=== PATIENT | male | born 1965 | race African-American/Black ===

== ENCOUNTER 2021-06-16 13:29 | Inpatient (IN) | payer MEDICARE, OTHER ==
[~2021-06-16] VITALS: Ht 182.9 cm; Wt 74.0 kg
[2021-06-16 16:48] VITALS: BP 120/61
[2021-06-16] MEDS ORDERED: MELATONIN 3 MG TABLET PO PRN (17:00)
[2021-06-16] MEDS ORDERED: DEXTROSE 50%-WATER 25 GM/50 ML SYRINGE IVP PRN (17:00)
[2021-06-16] MEDS ORDERED: HydrALAZINE HCL 50 MG TABLET PO PRN (17:45)
[2021-06-16] MEDS: INSULIN LISPRO 100 UNITS/ML SQ PRN ×2 (17:58→21:17)
[2021-06-16] MEDS: SEVELAMER CARBONATE 800 MG TABLET PO SCH (18:04)
[2021-06-16] MEDS: ACETAMINOPHEN 325 MG TABLET PO PRN (18:28)
[2021-06-16 19:46] LABS: GLUCOMETER DEV NAME(LOC) 2WR.2B; GLUCOSE,POINT OF CARE 151 MG/DL (70-110)
[2021-06-16] MEDS: ATORVASTATIN CALCIUM 40 MG TABLET PO SCH (21:04)
[2021-06-16] MEDS: SENNA 187 MG TABLET PO SCH (21:04)
[2021-06-16] MEDS: ETHYL ALCOHOL 62% ANTISEPTIC NASAL SANITIZER 0.6 ML AMPUL NASAL SCH (21:04)
[2021-06-16] MEDS: DOCUSATE SODIUM 100 MG CAPSULE PO SCH (21:05)
[2021-06-16] MEDS: HYDROmorphone HCL 2 MG TABLET PO SCH (21:05)
[2021-06-16 21:31] LABS: GLUCOMETER DEV NAME(LOC) 2WR.1C; GLUCOSE,POINT OF CARE 147 MG/DL (70-110)
[2021-06-17] VITALS (13 sets, daily range): BP systolic 117–140; BP diastolic 62–86
[2021-06-17 06:36] LABS: GLUCOMETER DEV NAME(LOC) 2WR.1C; GLUCOSE,POINT OF CARE 116 MG/DL (70-110)
[2021-06-17] MEDS: ETHYL ALCOHOL 62% ANTISEPTIC NASAL SANITIZER 0.6 ML AMPUL NASAL SCH ×2 (07:56→20:48)
[2021-06-17] MEDS: HYDROmorphone HCL 2 MG TABLET PO SCH (07:56)
[2021-06-17] MEDS: ASPIRIN 81 MG CHEWABLE TABLET PO SCH (07:56)
[2021-06-17] MEDS: SEVELAMER CARBONATE 800 MG TABLET PO SCH ×3 (07:56→17:29)
[2021-06-17] MEDS: CLOPIDOGREL BISULFATE 75 MG TABLET PO SCH (07:57)
[2021-06-17] MEDS: LISINOPRIL 20 MG TABLET PO SCH (07:57)
[2021-06-17] MEDS: AmLODIPine BESYLATE 10 MG TABLET PO SCH (07:57)
[2021-06-17] MEDS: VITAMIN B COMPLEX/FOLIC ACID 1 TABLET PO SCH (07:57)
[2021-06-17] MEDS: DOCUSATE SODIUM 100 MG CAPSULE PO SCH ×2 (08:02→20:47)
[2021-06-17] MEDS ORDERED: SODIUM CHLORIDE 0.9% 1,000 ML ONE ×2 (10:21→10:22)
[2021-06-17 10:27] LABS: BASOPHILS % (AUTO) 0.7 % (0.0-2.0); HEMATOCRIT 27.2 % (41-53); HEMOGLOBIN 8.7 g/dL (13.5-17.5); LYMPHOCYTES # (AUTO) 0.9 K/uL (1.0-4.8); LYMPHOCYTES % (AUTO) 6.6 % (22.0-44.0); MEAN CORPUSCULAR HEMOGLOBIN 29.6 pg (26.0-34.0); MEAN CORPUSCULAR VOLUME 92 fL (80-100); MONOCYTES # (AUTO) 1.3 K/uL (0.1-1.0); NEUTROPHILS # (AUTO) 11.7 K/uL (1.8-7.7); NEUTROPHILS % (AUTO) 82.7 % (40.0-70.0); PLATELET COUNT (AUTO) 258 K/uL (150-450); RED BLOOD CELL COUNT(AUTO) 2.94 MIL/uL (4.50-5.90); RED CELL DISTRIBUTION WIDTH 16.8 % (11.5-14.5)
[2021-06-17 10:34] LABS: ALBUMIN 2.2 g/dL (3.4-5.0); BILIRUBIN,TOTAL 0.3 mg/dL (0.1-1.0); CALCIUM, TOTAL 10.3 mg/dL (8.8-10.5); CREATININE 9.76 mg/dL (0.60-1.30); MAGNESIUM 2.5 mg/dL (1.80-2.40); PHOSPHORUS 5.6 mg/dL (2.5-4.9); POTASSIUM 4.6 mmol/L (3.5-5.1); TOTAL PROTEIN, SERUM 7.2 g/dL (6.4-8.2)
[2021-06-17] MEDS ORDERED: HYDROmorphone HCL 2 MG TABLET PO PRN (12:45)
[2021-06-17 16:16] LABS: GLUCOMETER DEV NAME(LOC) 2WR.2B; GLUCOSE,POINT OF CARE 84 MG/DL (70-110)
[2021-06-17] MEDS ORDERED: METO50 PO (17:07)
[2021-06-17] MEDS ORDERED: INSU100I26 SQ (17:07)
[2021-06-17] MEDS ORDERED: LISI-894 PO (17:07)
[2021-06-17] MEDS ORDERED: CLOP75TA60 PO (17:07)
[2021-06-17] MEDS ORDERED: ATOR40TA28 PO (17:07)
[2021-06-17] MEDS ORDERED: HYDR10TA31 PO (17:07)
[2021-06-17] MEDS ORDERED: FERR210T PO (17:10)
[2021-06-17 18:11] LABS: GLUCOMETER DEV NAME(LOC) 2WR.2B; GLUCOSE,POINT OF CARE 121 MG/DL (70-110)
[2021-06-17] MEDS: SENNA 187 MG TABLET PO SCH (20:47)
[2021-06-17] MEDS: ATORVASTATIN CALCIUM 40 MG TABLET PO SCH (20:47)
[2021-06-17 21:25] LABS: GLUCOMETER DEV NAME(LOC) 2WR.1C; GLUCOSE,POINT OF CARE 135 MG/DL (70-110)
[2021-06-18] VITALS: BP 130/74
[2021-06-18] MEDS: FAMOTIDINE 20 MG TABLET PO SCH (05:55)
[2021-06-18 06:16] LABS: GLUCOMETER DEV NAME(LOC) 2WR.1C; GLUCOSE,POINT OF CARE 98 MG/DL (70-110)
[2021-06-18] MEDS: ASPIRIN 81 MG CHEWABLE TABLET PO SCH (08:28)
[2021-06-18] MEDS: SEVELAMER CARBONATE 800 MG TABLET PO SCH ×3 (08:28→17:15)
[2021-06-18] MEDS: AmLODIPine BESYLATE 10 MG TABLET PO SCH (08:29)
[2021-06-18] MEDS: CLOPIDOGREL BISULFATE 75 MG TABLET PO SCH (08:29)
[2021-06-18] MEDS: VITAMIN B COMPLEX/FOLIC ACID 1 TABLET PO SCH (08:29)
[2021-06-18] MEDS: LISINOPRIL 20 MG TABLET PO SCH (08:29)
[2021-06-18] MEDS: DOCUSATE SODIUM 100 MG CAPSULE PO SCH ×2 (08:30→21:12)
[2021-06-18] MEDS: ETHYL ALCOHOL 62% ANTISEPTIC NASAL SANITIZER 0.6 ML AMPUL NASAL SCH ×2 (08:30→21:11)
[2021-06-18] MEDS: EPOETIN ALFA 10,000 UNITS/ML VIAL SQ SCH (09:27)
[2021-06-18 09:30] VITALS: BP 137/74
[2021-06-18 12:46] LABS: GLUCOMETER DEV NAME(LOC) 2WR.2B; GLUCOSE,POINT OF CARE 139 MG/DL (70-110)
[2021-06-18 16:35] VITALS: BP 124/72
[2021-06-18] MEDS: INSULIN LISPRO 100 UNITS/ML SQ PRN (17:28)
[2021-06-18] MEDS: ATORVASTATIN CALCIUM 40 MG TABLET PO SCH (21:12)
[2021-06-18] MEDS: SENNA 187 MG TABLET PO SCH (21:12)
[2021-06-18 22:36] LABS: GLUCOMETER DEV NAME(LOC) 2WR.2B; GLUCOSE,POINT OF CARE 133 MG/DL (70-110)
[2021-06-19] VITALS (12 sets, daily range): BP systolic 90–144; BP diastolic 55–129
[2021-06-19] MEDS: FAMOTIDINE 20 MG TABLET PO SCH (05:27)
[2021-06-19 05:31] LABS: GLUCOMETER DEV NAME(LOC) 2WR.1C; GLUCOSE,POINT OF CARE 149 MG/DL (70-110)
[2021-06-19 06:40] LABS: GLUCOMETER DEV NAME(LOC) 2WR.2B; GLUCOSE,POINT OF CARE 109 MG/DL (70-110)
[2021-06-19] MEDS: ETHYL ALCOHOL 62% ANTISEPTIC NASAL SANITIZER 0.6 ML AMPUL NASAL SCH ×2 (08:17→21:35)
[2021-06-19] MEDS: VITAMIN B COMPLEX/FOLIC ACID 1 TABLET PO SCH (08:17)
[2021-06-19] MEDS: SEVELAMER CARBONATE 800 MG TABLET PO SCH ×3 (08:17→17:00)
[2021-06-19] MEDS: CLOPIDOGREL BISULFATE 75 MG TABLET PO SCH (08:17)
[2021-06-19] MEDS: ASPIRIN 81 MG CHEWABLE TABLET PO SCH (08:17)
[2021-06-19] MEDS: AmLODIPine BESYLATE 10 MG TABLET PO SCH (08:42)
[2021-06-19] MEDS: DOCUSATE SODIUM 100 MG CAPSULE PO SCH ×2 (08:42→21:35)
[2021-06-19] MEDS: LISINOPRIL 20 MG TABLET PO SCH (08:43)
[2021-06-19] MEDS: ACETAMINOPHEN 325 MG TABLET PO PRN (09:17)
[2021-06-19] MEDS ORDERED: SODIUM CHLORIDE 0.9% 2,000 ML ONE (12:29)
[2021-06-19] MEDS: INSULIN LISPRO 100 UNITS/ML SQ PRN (12:34)
[2021-06-19 12:36] LABS: GLUCOMETER DEV NAME(LOC) 2WR.1C; GLUCOSE,POINT OF CARE 196 MG/DL (70-110)
[2021-06-19 14:02] LABS: BASOPHILS % (AUTO) 0.8 % (0.0-2.0); HEMATOCRIT 26.7 % (41-53); HEMOGLOBIN 8.6 g/dL (13.5-17.5); MEAN CORPUSCULAR HEMOGLOBIN 29.6 pg (26.0-34.0); MEAN CORPUSCULAR HGB CONC 32.4 G/dL (31.0-37.0); MEAN CORPUSCULAR VOLUME 92 fL (80-100); MONOCYTES # (AUTO) 1.1 K/uL (0.1-1.0); MONOCYTES % (AUTO) 9.7 % (2.0-9.0); NEUTROPHILS # (AUTO) 9.2 K/uL (1.8-7.7); NEUTROPHILS % (AUTO) 79.5 % (40.0-70.0); PLATELET COUNT (AUTO) 268 K/uL (150-450); RED BLOOD CELL COUNT(AUTO) 2.92 MIL/uL (4.50-5.90); RED CELL DISTRIBUTION WIDTH 16.5 % (11.5-14.5)
[2021-06-19] MEDS ORDERED: METO-558 PO (19:19)
[2021-06-19] MEDS ORDERED: LOPE2 PO (19:19)
[2021-06-19] MEDS ORDERED: AMLO10TA55 PO (19:19)
[2021-06-19] MEDS: HYDROCODONE/ACETAMINOPHEN 5-325 MG TABLET PO PRN (21:34)
[2021-06-19] MEDS: ATORVASTATIN CALCIUM 40 MG TABLET PO SCH (21:35)
[2021-06-19] MEDS: SENNA 187 MG TABLET PO SCH (21:35)
[2021-06-19] MEDS: GABAPENTIN 100 MG CAPSULE PO SCH (21:37)
[2021-06-19 22:07] LABS: GLUCOMETER DEV NAME(LOC) 2WR.2B; GLUCOSE,POINT OF CARE 99 MG/DL (70-110)
[2021-06-20] VITALS (7 sets, daily range): BP systolic 83–123; BP diastolic 41–63
[2021-06-20] MEDS: FAMOTIDINE 20 MG TABLET PO SCH (06:11)
[2021-06-20 06:31] LABS: GLUCOMETER DEV NAME(LOC) 2WR.2B; GLUCOSE,POINT OF CARE 110 MG/DL (70-110)
[2021-06-20] MEDS: EPOETIN ALFA 10,000 UNITS/ML VIAL SQ SCH (08:40)
[2021-06-20] MEDS: ETHYL ALCOHOL 62% ANTISEPTIC NASAL SANITIZER 0.6 ML AMPUL NASAL SCH ×2 (08:40→20:50)
[2021-06-20] MEDS: CLOPIDOGREL BISULFATE 75 MG TABLET PO SCH (08:41)
[2021-06-20] MEDS: GABAPENTIN 100 MG CAPSULE PO SCH ×2 (08:41→20:51)
[2021-06-20] MEDS: AmLODIPine BESYLATE 10 MG TABLET PO SCH (08:41)
[2021-06-20] MEDS: LISINOPRIL 20 MG TABLET PO SCH (08:41)
[2021-06-20] MEDS: SEVELAMER CARBONATE 800 MG TABLET PO SCH ×3 (08:41→17:24)
[2021-06-20] MEDS: DOCUSATE SODIUM 100 MG CAPSULE PO SCH ×2 (08:51→20:50)
[2021-06-20] MEDS: ASPIRIN 81 MG CHEWABLE TABLET PO SCH (08:53)
[2021-06-20] MEDS: VITAMIN B COMPLEX/FOLIC ACID 1 TABLET PO SCH (08:54)
[2021-06-20 12:26] LABS: GLUCOMETER DEV NAME(LOC) 2WR.1C; GLUCOSE,POINT OF CARE 157 MG/DL (70-110)
[2021-06-20] MEDS: INSULIN LISPRO 100 UNITS/ML SQ PRN ×2 (12:30→20:53)
[2021-06-20] MEDS: HYDROCODONE/ACETAMINOPHEN 5-325 MG TABLET PO PRN (14:06)
[2021-06-20 19:40] LABS: GLUCOMETER DEV NAME(LOC) 2WR.1C; GLUCOSE,POINT OF CARE 131 MG/DL (70-110)
[2021-06-20] MEDS: SENNA 187 MG TABLET PO SCH (20:51)
[2021-06-20] MEDS: ATORVASTATIN CALCIUM 40 MG TABLET PO SCH (20:52)
[2021-06-20 22:31] LABS: GLUCOMETER DEV NAME(LOC) 2WR.2B; GLUCOSE,POINT OF CARE 161 MG/DL (70-110)
[2021-06-21] VITALS (14 sets, daily range): BP systolic 91–110; BP diastolic 49–62
[2021-06-21] MEDS: FAMOTIDINE 20 MG TABLET PO SCH (05:45)
[2021-06-21 06:11] LABS: GLUCOMETER DEV NAME(LOC) 2WR.2B; GLUCOSE,POINT OF CARE 135 MG/DL (70-110)
[2021-06-21] MEDS: ETHYL ALCOHOL 62% ANTISEPTIC NASAL SANITIZER 0.6 ML AMPUL NASAL SCH ×2 (08:04→22:10)
[2021-06-21] MEDS: ASPIRIN 81 MG CHEWABLE TABLET PO SCH (08:05)
[2021-06-21] MEDS: CLOPIDOGREL BISULFATE 75 MG TABLET PO SCH (08:05)
[2021-06-21] MEDS: DOCUSATE SODIUM 100 MG CAPSULE PO SCH ×2 (08:05→22:10)
[2021-06-21] MEDS: VITAMIN B COMPLEX/FOLIC ACID 1 TABLET PO SCH (08:05)
[2021-06-21] MEDS: SEVELAMER CARBONATE 800 MG TABLET PO SCH ×2 (08:05→12:14)
[2021-06-21] MEDS: GABAPENTIN 100 MG CAPSULE PO SCH ×2 (08:06→22:10)
[2021-06-21] MEDS: AmLODIPine BESYLATE 10 MG TABLET PO SCH (08:06)
[2021-06-21] MEDS: LISINOPRIL 20 MG TABLET PO SCH (08:06)
[2021-06-21 09:11] LABS: BASOPHILS % (AUTO) 1.1 % (0.0-2.0); HEMATOCRIT 29.9 % (41-53); HEMOGLOBIN 9.6 g/dL (13.5-17.5); LYMPHOCYTES # (AUTO) 1.9 K/uL (1.0-4.8); LYMPHOCYTES % (AUTO) 18.1 % (22.0-44.0); MEAN CORPUSCULAR HEMOGLOBIN 29.8 pg (26.0-34.0); MEAN CORPUSCULAR VOLUME 93 fL (80-100); MONOCYTES # (AUTO) 1.2 K/uL (0.1-1.0); NEUTROPHILS # (AUTO) 7.2 K/uL (1.8-7.7); NEUTROPHILS % (AUTO) 67.8 % (40.0-70.0); PLATELET COUNT (AUTO) 296 K/uL (150-450); RED BLOOD CELL COUNT(AUTO) 3.21 MIL/uL (4.50-5.90); RED CELL DISTRIBUTION WIDTH 16.6 % (11.5-14.5)
[2021-06-21 09:23] LABS: CALCIUM, TOTAL 10.7 mg/dL (8.8-10.5); CREATININE 9.79 mg/dL (0.60-1.30); MAGNESIUM 2.6 mg/dL (1.80-2.40); PHOSPHORUS 5.4 mg/dL (2.5-4.9); POTASSIUM 4.2 mmol/L (3.5-5.1)
[2021-06-21] MEDS: HYDROCODONE/ACETAMINOPHEN 5-325 MG TABLET PO PRN (10:41)
[2021-06-21] MEDS: INSULIN LISPRO 100 UNITS/ML SQ PRN ×3 (12:15→22:16)
[2021-06-21] MEDS: ACETAMINOPHEN 325 MG TABLET PO PRN (13:28)
[2021-06-21 14:06] LABS: GLUCOMETER DEV NAME(LOC) 2WR.2B; GLUCOSE,POINT OF CARE 167 MG/DL (70-110)
[2021-06-21] MEDS ORDERED: SODIUM CHLORIDE 0.9% 1,000 ML ONE ×2 (14:36→14:37)
[2021-06-21] MEDS ORDERED: *PATIENT'S OWN MED [ENTER DRUG, DOSE, FREQUENCY IN COMMENTS] CLINICAL ONE (17:30)
[2021-06-21] MEDS: FERRIC CITRATE 1 GM PO SCH (18:56)
[2021-06-21 19:06] LABS: GLUCOMETER DEV NAME(LOC) 2WR.2B; GLUCOSE,POINT OF CARE 147 MG/DL (70-110)
[2021-06-21] MEDS: ATORVASTATIN CALCIUM 40 MG TABLET PO SCH (22:10)
[2021-06-21] MEDS: SENNA 187 MG TABLET PO SCH (22:10)
[2021-06-21 22:52] LABS: GLUCOMETER DEV NAME(LOC) 2WR.2B; GLUCOSE,POINT OF CARE 170 MG/DL (70-110)
[2021-06-22] VITALS (9 sets, daily range): BP systolic 85–115; BP diastolic 50–68
[2021-06-22] MEDS: FAMOTIDINE 20 MG TABLET PO SCH (05:55)
[2021-06-22 06:36] LABS: GLUCOMETER DEV NAME(LOC) 2WR.1C; GLUCOSE,POINT OF CARE 117 MG/DL (70-110)
[2021-06-22] MEDS: FERRIC CITRATE 1 GM PO SCH ×3 (07:47→16:57)
[2021-06-22] MEDS: ETHYL ALCOHOL 62% ANTISEPTIC NASAL SANITIZER 0.6 ML AMPUL NASAL SCH ×2 (07:47→22:03)
[2021-06-22] MEDS: DOCUSATE SODIUM 100 MG CAPSULE PO SCH ×2 (07:48→22:04)
[2021-06-22] MEDS: GABAPENTIN 100 MG CAPSULE PO SCH ×2 (07:48→22:04)
[2021-06-22] MEDS: VITAMIN B COMPLEX/FOLIC ACID 1 TABLET PO SCH (07:48)
[2021-06-22] MEDS: ASPIRIN 81 MG CHEWABLE TABLET PO SCH (07:48)
[2021-06-22] MEDS: CLOPIDOGREL BISULFATE 75 MG TABLET PO SCH (07:49)
[2021-06-22] MEDS: EPOETIN ALFA 10,000 UNITS/ML VIAL SQ SCH (07:52)
[2021-06-22] MEDS: AmLODIPine BESYLATE 10 MG TABLET PO SCH (10:05)
[2021-06-22] MEDS: LISINOPRIL 20 MG TABLET PO SCH (10:05)
[2021-06-22] MEDS: ONDANSETRON HCL 4 MG TABLET PO PRN (11:41)
[2021-06-22 12:21] LABS: GLUCOMETER DEV NAME(LOC) 2WR.2B; GLUCOSE,POINT OF CARE 147 MG/DL (70-110)
[2021-06-22] MEDS: INSULIN LISPRO 100 UNITS/ML SQ PRN ×2 (12:38→22:09)
[2021-06-22 17:37] LABS: GLUCOMETER DEV NAME(LOC) 2WR.1C; GLUCOSE,POINT OF CARE 97 MG/DL (70-110)
[2021-06-22] MEDS: ATORVASTATIN CALCIUM 40 MG TABLET PO SCH (22:04)
[2021-06-22] MEDS: SENNA 187 MG TABLET PO SCH (22:04)
[2021-06-22 23:51] LABS: GLUCOMETER DEV NAME(LOC) 2WR.2B; GLUCOSE,POINT OF CARE 162 MG/DL (70-110)
[2021-06-23] VITALS (13 sets, daily range): BP systolic 92–120; BP diastolic 49–85
[2021-06-23] MEDS: FAMOTIDINE 20 MG TABLET PO SCH (05:53)
[2021-06-23 06:01] LABS: GLUCOMETER DEV NAME(LOC) 2WR.2B; GLUCOSE,POINT OF CARE 115 MG/DL (70-110)
[2021-06-23 06:41] LABS: BASOPHILS % (AUTO) 0.2 % (0.0-2.0); EOSINOPHILS % (AUTO) 1.4 % (1.0-6.0); HEMATOCRIT 29.6 % (41-53); HEMOGLOBIN 9.3 g/dL (13.5-17.5); LYMPHOCYTES # (AUTO) 1.7 K/uL (1.0-4.8); MEAN CORPUSCULAR HEMOGLOBIN 29.2 pg (26.0-34.0); MEAN CORPUSCULAR HGB CONC 31.5 G/dL (31.0-37.0); MEAN CORPUSCULAR VOLUME 93 fL (80-100); MONOCYTES # (AUTO) 1.2 K/uL (0.1-1.0); MONOCYTES % (AUTO) 9.1 % (2.0-9.0); NEUTROPHILS # (AUTO) 10.2 K/uL (1.8-7.7); NEUTROPHILS % (AUTO) 76.3 % (40.0-70.0); PLATELET COUNT (AUTO) 303 K/uL (150-450); RED CELL DISTRIBUTION WIDTH 16.5 % (11.5-14.5)
[2021-06-23 06:56] LABS: CALCIUM, TOTAL 10.9 mg/dL (8.8-10.5); CREATININE 9.6 mg/dL (0.60-1.30); MAGNESIUM 2.3 mg/dL (1.80-2.40); PHOSPHORUS 5.2 mg/dL (2.5-4.9); POTASSIUM 5.4 mmol/L (3.5-5.1)
[2021-06-23] MEDS: FERRIC CITRATE 1 GM PO SCH ×3 (08:20→17:46)
[2021-06-23] MEDS: LISINOPRIL 20 MG TABLET PO SCH (08:21)
[2021-06-23] MEDS: ASPIRIN 81 MG CHEWABLE TABLET PO SCH (08:22)
[2021-06-23] MEDS: AmLODIPine BESYLATE 10 MG TABLET PO SCH (08:22)
[2021-06-23] MEDS: CLOPIDOGREL BISULFATE 75 MG TABLET PO SCH (08:22)
[2021-06-23] MEDS: GABAPENTIN 100 MG CAPSULE PO SCH ×2 (08:22→21:28)
[2021-06-23] MEDS: ETHYL ALCOHOL 62% ANTISEPTIC NASAL SANITIZER 0.6 ML AMPUL NASAL SCH ×2 (08:23→21:28)
[2021-06-23] MEDS: DOCUSATE SODIUM 100 MG CAPSULE PO SCH ×2 (08:23→21:30)
[2021-06-23] MEDS: ACETAMINOPHEN 325 MG TABLET PO PRN (08:29)
[2021-06-23] MEDS: VITAMIN B COMPLEX/FOLIC ACID 1 TABLET PO SCH (08:30)
[2021-06-23] MEDS: INSULIN LISPRO 100 UNITS/ML SQ PRN ×2 (12:29→21:33)
[2021-06-23 13:26] LABS: GLUCOMETER DEV NAME(LOC) 2WR.2B; GLUCOSE,POINT OF CARE 159 MG/DL (70-110)
[2021-06-23] MEDS ORDERED: SODIUM CHLORIDE 0.9% 2,000 ML ONE (15:43)
[2021-06-23] MEDS: HYDROCODONE/ACETAMINOPHEN 5-325 MG TABLET PO PRN (16:10)
[2021-06-23 18:51] LABS: GLUCOMETER DEV NAME(LOC) 2WR.2B; GLUCOSE,POINT OF CARE 97 MG/DL (70-110)
[2021-06-23] MEDS: ATORVASTATIN CALCIUM 40 MG TABLET PO SCH (21:28)
[2021-06-23] MEDS: SENNA 187 MG TABLET PO SCH (21:29)
[2021-06-23 22:01] LABS: GLUCOMETER DEV NAME(LOC) 2WR.2B; GLUCOSE,POINT OF CARE 152 MG/DL (70-110)
[2021-06-24 05:07] LABS: CHOL/HDL RATIO 2.8 (4.2-7.3)
[2021-06-24] MEDS: FAMOTIDINE 20 MG TABLET PO SCH (05:50)
[2021-06-24 05:52] VITALS: BP 117/65
[2021-06-24 06:51] LABS: GLUCOMETER DEV NAME(LOC) 2WR.1C; GLUCOSE,POINT OF CARE 128 MG/DL (70-110)
[2021-06-24] MEDS: FERRIC CITRATE 1 GM PO SCH ×3 (08:51→17:37)
[2021-06-24] MEDS: ETHYL ALCOHOL 62% ANTISEPTIC NASAL SANITIZER 0.6 ML AMPUL NASAL SCH ×2 (08:51→20:45)
[2021-06-24] MEDS: ASPIRIN 81 MG CHEWABLE TABLET PO SCH (08:51)
[2021-06-24] MEDS: DOCUSATE SODIUM 100 MG CAPSULE PO SCH ×2 (08:52→20:46)
[2021-06-24] MEDS: CLOPIDOGREL BISULFATE 75 MG TABLET PO SCH (08:52)
[2021-06-24] MEDS: VITAMIN B COMPLEX/FOLIC ACID 1 TABLET PO SCH (08:52)
[2021-06-24] MEDS: AmLODIPine BESYLATE 10 MG TABLET PO SCH (08:52)
[2021-06-24] MEDS: GABAPENTIN 100 MG CAPSULE PO SCH ×2 (08:52→20:46)
[2021-06-24] MEDS: LISINOPRIL 20 MG TABLET PO SCH (08:52)
[2021-06-24 11:21] VITALS: BP 107/48
[2021-06-24] MEDS: INSULIN LISPRO 100 UNITS/ML SQ PRN ×3 (12:26→20:48)
[2021-06-24 12:51] LABS: GLUCOMETER DEV NAME(LOC) 2WR.1C; GLUCOSE,POINT OF CARE 147 MG/DL (70-110)
[2021-06-24 15:04] VITALS: BP 116/62
[2021-06-24] MEDS: ACETAMINOPHEN 325 MG TABLET PO PRN (15:04)
[2021-06-24 18:41] LABS: GLUCOMETER DEV NAME(LOC) 2WR.2B; GLUCOSE,POINT OF CARE 142 MG/DL (70-110)
[2021-06-24] MEDS: ATORVASTATIN CALCIUM 40 MG TABLET PO SCH (20:46)
[2021-06-24] MEDS: SENNA 187 MG TABLET PO SCH (20:46)
[2021-06-24 21:46] LABS: GLUCOMETER DEV NAME(LOC) 2WR.2B; GLUCOSE,POINT OF CARE 148 MG/DL (70-110)
[2021-06-25 00:15] VITALS: BP 101/53
[2021-06-25] MEDS: HYDROCODONE/ACETAMINOPHEN 5-325 MG TABLET PO PRN (00:23)
[2021-06-25] MEDS: FAMOTIDINE 20 MG TABLET PO SCH (06:05)
[2021-06-25 06:21] LABS: GLUCOMETER DEV NAME(LOC) 2WR.2B; GLUCOSE,POINT OF CARE 106 MG/DL (70-110)
[2021-06-25 08:00] VITALS: BP 108/64
[2021-06-25] MEDS: FERRIC CITRATE 1 GM PO SCH ×3 (08:14→17:52)
[2021-06-25] MEDS: LISINOPRIL 20 MG TABLET PO SCH (08:15)
[2021-06-25] MEDS: DOCUSATE SODIUM 100 MG CAPSULE PO SCH ×2 (08:15→20:15)
[2021-06-25] MEDS: CLOPIDOGREL BISULFATE 75 MG TABLET PO SCH (08:15)
[2021-06-25] MEDS: VITAMIN B COMPLEX/FOLIC ACID 1 TABLET PO SCH (08:15)
[2021-06-25] MEDS: GABAPENTIN 100 MG CAPSULE PO SCH ×2 (08:15→20:15)
[2021-06-25] MEDS: ASPIRIN 81 MG CHEWABLE TABLET PO SCH (08:15)
[2021-06-25] MEDS: ETHYL ALCOHOL 62% ANTISEPTIC NASAL SANITIZER 0.6 ML AMPUL NASAL SCH ×2 (08:16→20:16)
[2021-06-25] MEDS: AmLODIPine BESYLATE 5 MG TABLET PO SCH (08:16)
[2021-06-25] MEDS: EPOETIN ALFA 10,000 UNITS/ML VIAL SQ SCH (08:20)
[2021-06-25 12:36] LABS: GLUCOMETER DEV NAME(LOC) 2WR.2B; GLUCOSE,POINT OF CARE 190 MG/DL (70-110)
[2021-06-25] MEDS: INSULIN LISPRO 100 UNITS/ML SQ PRN ×2 (12:55→21:29)
[2021-06-25 16:10] VITALS: BP 123/54
[2021-06-25 17:37] LABS: GLUCOMETER DEV NAME(LOC) 2WR.2B; GLUCOSE,POINT OF CARE 113 MG/DL (70-110)
[2021-06-25] MEDS: ATORVASTATIN CALCIUM 40 MG TABLET PO SCH (20:15)
[2021-06-25] MEDS: SENNA 187 MG TABLET PO SCH (20:15)
[2021-06-25 21:51] LABS: GLUCOMETER DEV NAME(LOC) 2WR.1C; GLUCOSE,POINT OF CARE 180 MG/DL (70-110)
[2021-06-26] VITALS (7 sets, daily range): BP systolic 91–133; BP diastolic 52–62
[2021-06-26] MEDS: FAMOTIDINE 20 MG TABLET PO SCH (05:47)
[2021-06-26 06:16] LABS: GLUCOMETER DEV NAME(LOC) 2WR.1C; GLUCOSE,POINT OF CARE 106 MG/DL (70-110)
[2021-06-26] MEDS: ASPIRIN 81 MG CHEWABLE TABLET PO SCH (07:43)
[2021-06-26] MEDS: FERRIC CITRATE 1 GM PO SCH ×3 (07:43→17:58)
[2021-06-26] MEDS: GABAPENTIN 100 MG CAPSULE PO SCH ×2 (07:44→21:52)
[2021-06-26] MEDS: ETHYL ALCOHOL 62% ANTISEPTIC NASAL SANITIZER 0.6 ML AMPUL NASAL SCH ×2 (07:44→21:52)
[2021-06-26] MEDS: CLOPIDOGREL BISULFATE 75 MG TABLET PO SCH (07:44)
[2021-06-26] MEDS: VITAMIN B COMPLEX/FOLIC ACID 1 TABLET PO SCH (07:44)
[2021-06-26] MEDS: DOCUSATE SODIUM 100 MG CAPSULE PO SCH ×2 (07:44→21:52)
[2021-06-26] MEDS: LISINOPRIL 20 MG TABLET PO SCH (07:46)
[2021-06-26] MEDS: AmLODIPine BESYLATE 5 MG TABLET PO SCH (07:46)
[2021-06-26] MEDS ORDERED: AmLODIPine BESYLATE 2.5 MG TABLET PO SCH (09:00)
[2021-06-26] MEDS: ONDANSETRON HCL 4 MG TABLET PO PRN (11:09)
[2021-06-26] MEDS: INSULIN LISPRO 100 UNITS/ML SQ PRN ×2 (12:37→18:07)
[2021-06-26] MEDS ORDERED: SODIUM CHLORIDE 0.9% 2,000 ML ONE (16:44)
[2021-06-26 18:51] LABS: GLUCOMETER DEV NAME(LOC) 2WR.2B; GLUCOSE,POINT OF CARE 141 MG/DL (70-110)
[2021-06-26] MEDS: SENNA 187 MG TABLET PO SCH (21:51)
[2021-06-26] MEDS: ATORVASTATIN CALCIUM 40 MG TABLET PO SCH (21:51)
[2021-06-26 22:16] LABS: GLUCOMETER DEV NAME(LOC) 2WR.1C; GLUCOSE,POINT OF CARE 175 MG/DL (70-110)
[2021-06-26 22:51] LABS: GLUCOMETER DEV NAME(LOC) 2WR.2B; GLUCOSE,POINT OF CARE 137 MG/DL (70-110)
[2021-06-27 01:27] VITALS: BP 99/52
[2021-06-27] MEDS: FAMOTIDINE 20 MG TABLET PO SCH (06:40)
[2021-06-27 06:56] LABS: GLUCOMETER DEV NAME(LOC) 2WR.2B; GLUCOSE,POINT OF CARE 106 MG/DL (70-110)
[2021-06-27 08:00] VITALS: BP 91/50
[2021-06-27] MEDS: ETHYL ALCOHOL 62% ANTISEPTIC NASAL SANITIZER 0.6 ML AMPUL NASAL SCH ×2 (08:01→21:10)
[2021-06-27] MEDS: FERRIC CITRATE 1 GM PO SCH ×3 (08:01→17:43)
[2021-06-27] MEDS: DOCUSATE SODIUM 100 MG CAPSULE PO SCH ×2 (08:01→21:09)
[2021-06-27] MEDS: CLOPIDOGREL BISULFATE 75 MG TABLET PO SCH (08:02)
[2021-06-27] MEDS: VITAMIN B COMPLEX/FOLIC ACID 1 TABLET PO SCH (08:02)
[2021-06-27] MEDS: ASPIRIN 81 MG CHEWABLE TABLET PO SCH (08:02)
[2021-06-27] MEDS: GABAPENTIN 100 MG CAPSULE PO SCH ×2 (08:02→21:10)
[2021-06-27] MEDS: EPOETIN ALFA 10,000 UNITS/ML VIAL SQ SCH (08:06)
[2021-06-27] MEDS: LISINOPRIL 20 MG TABLET PO SCH (09:00)
[2021-06-27 10:30] VITALS: BP 110/57
[2021-06-27 11:51] LABS: GLUCOMETER DEV NAME(LOC) 2WR.1C; GLUCOSE,POINT OF CARE 132 MG/DL (70-110)
[2021-06-27 16:02] VITALS: BP 105/60
[2021-06-27] MEDS: SENNA 187 MG TABLET PO SCH (21:09)
[2021-06-27] MEDS: ATORVASTATIN CALCIUM 40 MG TABLET PO SCH (21:10)
[2021-06-27] MEDS: INSULIN LISPRO 100 UNITS/ML SQ PRN (21:12)
[2021-06-28] VITALS (7 sets, daily range): BP systolic 80–126; BP diastolic 43–79
[2021-06-28] MEDS: FAMOTIDINE 20 MG TABLET PO SCH (06:11)
[2021-06-28] MEDS: VITAMIN B COMPLEX/FOLIC ACID 1 TABLET PO SCH (08:07)
[2021-06-28] MEDS: FERRIC CITRATE 1 GM PO SCH ×3 (08:07→17:10)
[2021-06-28] MEDS: GABAPENTIN 100 MG CAPSULE PO SCH ×2 (08:07→22:25)
[2021-06-28] MEDS: CLOPIDOGREL BISULFATE 75 MG TABLET PO SCH (08:08)
[2021-06-28] MEDS: DOCUSATE SODIUM 100 MG CAPSULE PO SCH ×2 (08:08→22:29)
[2021-06-28] MEDS: ASPIRIN 81 MG CHEWABLE TABLET PO SCH (08:08)
[2021-06-28] MEDS: ETHYL ALCOHOL 62% ANTISEPTIC NASAL SANITIZER 0.6 ML AMPUL NASAL SCH ×2 (08:08→22:25)
[2021-06-28] MEDS: LISINOPRIL 10 MG TABLET PO SCH (09:00)
[2021-06-28] MEDS ORDERED: LISINOPRIL 20 MG TABLET PO SCH (09:00)
[2021-06-28] MEDS: INSULIN LISPRO 100 UNITS/ML SQ PRN (12:53)
[2021-06-28 16:32] LABS: GLUCOMETER DEV NAME(LOC) 2WR.2B; GLUCOSE,POINT OF CARE 142 MG/DL (70-110)
[2021-06-28 16:32] LABS: GLUCOMETER DEV NAME(LOC) 2WR.2B; GLUCOSE,POINT OF CARE 96 MG/DL (70-110)
[2021-06-28 16:38] LABS: GLUCOMETER DEV NAME(LOC) 2WR.2B; GLUCOSE,POINT OF CARE 146 MG/DL (70-110)
[2021-06-28 16:38] LABS: GLUCOMETER DEV NAME(LOC) 2WR.1C; GLUCOSE,POINT OF CARE 116 MG/DL (70-110)
[2021-06-28 17:51] LABS: GLUCOMETER DEV NAME(LOC) 2WR.2B; GLUCOSE,POINT OF CARE 102 MG/DL (70-110)
[2021-06-28] MEDS: HYDROCODONE/ACETAMINOPHEN 5-325 MG TABLET PO PRN (22:24)
[2021-06-28] MEDS: SENNA 187 MG TABLET PO SCH (22:25)
[2021-06-28] MEDS: ATORVASTATIN CALCIUM 40 MG TABLET PO SCH (22:25)
[2021-06-28 22:46] LABS: GLUCOMETER DEV NAME(LOC) 2WR.1C; GLUCOSE,POINT OF CARE 134 MG/DL (70-110)
[2021-06-29] VITALS: BP 109/50
[2021-06-29] MEDS ORDERED: B CO1CAP6 PO (03:09)
[2021-06-29] MEDS ORDERED: FAMO20 PO (03:09)
[2021-06-29] MEDS ORDERED: CLOP75TA60 PO (03:09)
[2021-06-29] MEDS ORDERED: SENN8.6T90 PO (03:09)
[2021-06-29] MEDS ORDERED: DOCU-385 PO (03:09)
[2021-06-29] MEDS ORDERED: VITA-328 PO (03:09)
[2021-06-29] MEDS ORDERED: GABA-1216 PO (03:09)
[2021-06-29] MEDS ORDERED: ATOR40TA28 PO (03:09)
[2021-06-29] MEDS ORDERED: ASPI-1450 PO (03:09)
[2021-06-29] MEDS: FAMOTIDINE 20 MG TABLET PO SCH (05:45)
[2021-06-29 05:50] VITALS: BP 104/59
[2021-06-29 06:26] LABS: GLUCOMETER DEV NAME(LOC) 2WR.2B; GLUCOSE,POINT OF CARE 96 MG/DL (70-110)
[2021-06-29] MEDS: FERRIC CITRATE 1 GM PO SCH (08:06)
[2021-06-29 08:16] VITALS: BP 90/52
[2021-06-29] MEDS: ASPIRIN 81 MG CHEWABLE TABLET PO SCH (08:26)
[2021-06-29] MEDS: ETHYL ALCOHOL 62% ANTISEPTIC NASAL SANITIZER 0.6 ML AMPUL NASAL SCH (08:26)
[2021-06-29] MEDS: GABAPENTIN 100 MG CAPSULE PO SCH (08:26)
[2021-06-29] MEDS: DOCUSATE SODIUM 100 MG CAPSULE PO SCH (08:26)
[2021-06-29] MEDS: VITAMIN B COMPLEX/FOLIC ACID 1 TABLET PO SCH (08:26)
[2021-06-29] MEDS: CLOPIDOGREL BISULFATE 75 MG TABLET PO SCH (08:27)
[2021-06-29] MEDS: EPOETIN ALFA 10,000 UNITS/ML VIAL SQ SCH (08:30)
[2021-06-29 09:02] VITALS: BP 127/77
[2021-06-29] MEDS: LISINOPRIL 10 MG TABLET PO SCH (09:07)
[2021-06-29] MEDS ORDERED: INSU100C14 SQ (11:14)
[2021-06-29] MEDS ORDERED: INSU100V SQ (11:41)
== END 2021-06-29 12:30 | disposition home health service (06) | DRG 299 ==
LOC: 2WR 14:30
PROVIDERS: ADMIT Physical Medicine & Rehabilitation; ATTEND Physical Medicine & Rehabilitation
PROC: 5A1D70Z Performance of Urinary Filtration, Intermittent, Less than 6 Hours Per Day (ICD-10-PCS; principal; 2021-06-17)
PROC: 5A1D70Z Performance of Urinary Filtration, Intermittent, Less than 6 Hours Per Day (ICD-10-PCS; 2021-06-19)
PROC: 5A1D70Z Performance of Urinary Filtration, Intermittent, Less than 6 Hours Per Day (ICD-10-PCS; 2021-06-21)
PROC: 5A1D70Z Performance of Urinary Filtration, Intermittent, Less than 6 Hours Per Day (ICD-10-PCS; 2021-06-23)
PROC: 5A1D70Z Performance of Urinary Filtration, Intermittent, Less than 6 Hours Per Day (ICD-10-PCS; 2021-06-26)
PROC: 5A1D70Z Performance of Urinary Filtration, Intermittent, Less than 6 Hours Per Day (ICD-10-PCS; 2021-06-28)
DX: E11.51 Type 2 diabetes mellitus with diabetic peripheral angiopathy without gangrene (principal); N18.6 End stage renal disease; I12.0 Hypertensive chronic kidney disease with stage 5 chronic kidney disease or end stage renal disease; D63.1 Anemia in chronic kidney disease; E11.22 Type 2 diabetes mellitus with diabetic chronic kidney disease; D72.829 Elevated white blood cell count, unspecified; E78.5 Hyperlipidemia, unspecified; E83.52 Hypercalcemia; E87.5 Hyperkalemia; F43.20 Adjustment disorder, unspecified; I25.10 Atherosclerotic heart disease of native coronary artery without angina pectoris; Z79.4 Long term (current) use of insulin; Z79.899 Other long term (current) drug therapy; Z89.512 Acquired absence of left leg below knee; Z95.1 Presence of aortocoronary bypass graft; Z99.2 Dependence on renal dialysis
CPT/HCPCS: 71046; 80048; 80053; 80061; 82962; 83735; 83970; 84100; 85025; 87081; 87340; 90935; 97110; 97116; 97163; 97166; 97530; 97535; 99366; J0885; J7030; Q0162; Q9967; 36415-L1; 36415-TC